=== PATIENT | male | born 1980 | race Two or more races ===

== ENCOUNTER → 2024-10-03 | Outpatient (CLI) | payer BC, SELFPAY ==
--- NOTE | 2024-10-03 14:45 | XR_ITS ---
Examination: MRI lumbar spine without contrast Date and time of exam: October 03, 2024 1515 hrs. Indications: Lower back pain radiating to the left leg beginning 4 years ago, worse the last 2 months Technique: Multiple MRI axial and sagittal sections lumbar spine. Sagittal T2-weighted images, TR 3500, TE 118 T1 weighted transverse sections, TR 688 T8.5, T2-weighted sagittal sections T1 weighted sagittal sections TR 621, TE 30 T2 axial sections, TR 4, 190, TE 84. Findings: Diffuse lumbar disc narrowing, moderate to advanced L4-L5 Diffuse lumbar disc desiccation No lumbar fracture No spondylolisthesis L5-S1 4 mm central lumbar disc bulge L4-5 no disc protrusion L3-L4 no disc protrusion L2-L3 no disc protrusion L1-L2 no disc protrusion Impression: L5-S1 4 mm central lumbar disc bulge
== END | disposition home or self-care (01) ==
LOC: SMRI 14:18
PROVIDERS: PCP Physician Assistant; Referring Provider Physician Assistant; Visit Provider Physician Assistant
DX: M51.379 Other intervertebral disc degeneration, lumbosacral region without mention of lumbar back pain or lower extremity pain (principal)
CPT/HCPCS: 72148